=== PATIENT | female | born 1955 | race African-American/Black ===

== ENCOUNTER 2016-05-16 21:35 | Emergency (ER) | payer OTHER ==
[~2016-05-16] VITALS: Ht 157.5 cm; Wt 83.0 kg
[~2016-05-16 21:35] MED LIST: B12-1CHW CHEW; CARV3.125 PO; FLUT1SPR9 INH; HYDR-2768 PO; MEVA40TA6 PO; POTA595T2 PO; ST J81CH PO; SYMB80AE INH
[2016-05-16 21:37] VITALS: BP 182/81; PULSE 60; RESP 16; TEMP 97.8; O2SAT 99
[2016-05-16] MEDS ORDERED: ASPI81CH CHEW (23:20)
[2016-05-16] MEDS ORDERED: B12-1CHW CHEW (23:20)
[2016-05-16] MEDS ORDERED: CARV3.125 PO (23:20)
[2016-05-16] MEDS ORDERED: POTA595T (23:20)
[2016-05-16] MEDS ORDERED: HYDR25TA5 PO (23:20)
[2016-05-16] MEDS ORDERED: LOVA40TA PO (23:20)
[2016-05-16 23:50] VITALS: BP 148/85; PULSE 61; RESP 16; O2SAT 97
--- NOTE | 2016-05-17 01:03 | PD ---
HPI Chief Complaint: Numbness/Tingling Time Seen by Provider: 00:48 Travel History International Travel<30 days: No Contact w/Intl Traveler<30days: No Traveled to known affect area: No History of Present Illness HPI The patient is a 60-year-old female that complains of bilateral hands tingling and numbness, this has resolved. The patient does have a history of anxiety. She also has bilateral pinprick feeling and tingling in the bottom of her feet for 4 days. She was told she had borderline diabetes 6 months ago. She is followed by Dr. Wayne. The patient states her job is very stressful. PFSH Past Medical History Hx Anticoagulant Therapy: Yes (81 MG. ASA) Asthma: Yes Heart Rhythm Problems: No Cardiac Catheterization: No Cardiovascular Problems: Yes (HTN, CHOL) High Cholesterol: Yes Congestive Heart Failure: No Diabetes: No Diminished Hearing: No Heparin Induced Thrombocytopen: No Hypertension: Yes Implanted Vascular Access Dvce: No Psychiatric: No Respiratory: Yes (ASTHMA) Immunizations Current: Yes Myocardial Infarction: No Tetanus Vaccination: Unknown Influenza Vaccination: No Menopausal: Yes : 2 Para: 2 Tubal Ligation: Yes Past Surgical History Abdominal Surgery: Yes (cholecystectomy, tubal ligation) Cholecystectomy: Yes Coronary Artery Bypass Graft: No Other Surgery: Yes Family History Family Myocardial Infarction: No Social History Alcohol Use: Yes (OCCASIONAL) Tobacco Use: Yes (when drinks) Substance Use: No Allergies-Medications (Allergen,Severity, Reaction): Coded Allergies: Flexeril (Verified Allergy, Severe, 05/16/16) Soma (Verified Allergy, Severe, 05/16/16) Reported Meds & Prescriptions Reported Meds & Active Scripts Active Reported Potassium Gluconate 595 Mg Tab 2 DAILY [id number] (Methylcobalamin) 1 Mg Chew 1 Mg CHEW DAILY Lovastatin 40 Mg Tab 40 Mg PO DAILY Hydrochlorothiazide 25 Mg Tab 25 Mg PO DAILY Coreg (Carvedilol) 3.125 Mg Tab 3.125 Mg PO BID Aspirin 81 Mg Chew 81 Mg CHEW DAILY Review of Systems Except as stated in HPI: all other systems reviewed are Neg Physical Exam Narrative GENERAL: Well-nourished, well-developed patient who appears slightly anxious but in otherwise no apparent distress. Her vital signs show initially show blood pressure 182/81 but, after relaxing, her blood pressure is 148/85. The rest the vital signs are normal. SKIN: Warm and dry. HEAD: Normocephalic. EYES: No scleral icterus. No injection or drainage. NECK: Supple, trachea midline. No JVD or lymphadenopathy. CARDIOVASCULAR: Regular rate and rhythm without murmurs, gallops, or rubs. RESPIRATORY: Breath sounds equal bilaterally. No accessory muscle use. GASTROINTESTINAL: Abdomen soft, non-tender, nondistended. MUSCULOSKELETAL: No cyanosis, or edema. BACK: Nontender without obvious deformity. No CVA tenderness. NEUROLOGICAL: Awake and alert. Cranial nerves II through XII intact. Motor and sensory grossly within normal limits. Five out of 5 muscle strength in all muscle groups. Normal speech and gait. Data Data Last Documented VS Vital Signs Date Time Temp Pulse Resp B/P Pulse Ox O2 Delivery O2 Flow Rate FiO2 05/16/16 23:50 61 16 148/85 97 Room Air 05/16/16 21:37 97.8 Orders Blood Glucose (05/17/16 00:56) MDM Medical Decision Making Medical Screen Exam Complete: Yes Emergency Medical Condition: Yes Medical Record Reviewed: Yes Interpretation(s) The Accu-Chek is 93. Differential Diagnosis Anxiety/hyperventilation, diabetic neuropathy of feet, ischemic CVAhighly unlikely Narrative Course The patient's hand tingling which is bilateral appears to be anxiety/ hyperventilation. The patient's pinprick-type tingling and pain in the bottom of her feet may be from diabetic neuropathy. Her Accu-Chek is normal at this time. At this time she has no tingling in her hand and she feels calm. Diagnosis Primary Impression: Anxiety hyperventilation Additional Impression: Diabetic neuropathy Additional Instructions: Follow-up with your primary care physician next week. Try to exercise and find ways besides medications to help relieve the stress from work. Med/Other Pt SpecificInfo: No Change to Meds Disposition: 01 DISCHARGE HOME Condition: Stable Alonzo Urbina MD May 17, 2016 01:03
--- NOTE | 2016-05-18 11:07 | EKG ---
Date Performed: 05/16/2016 Time Performed: 23:26:02 PTAGE: 60 years EKG: SINUS BRADYCARDIA POSSIBLE LEFT ATRIAL ENLARGEMENT BORDERLINE ECG PREVIOUS TRACING : 04/19/2015 07.30 DOCTOR: Cynthia Ferris Interpretating Date/Time 05/18/2016 11:03:58
== END 2016-05-17 01:27 | disposition home or self-care (01) ==
LOC: NEPC 21:35
DX: R06.4 Hyperventilation (principal); F41.9 Anxiety disorder, unspecified; E11.40 Type 2 diabetes mellitus with diabetic neuropathy, unspecified; R94.31 Abnormal electrocardiogram [ECG] [EKG]; I10 Essential (primary) hypertension; Z72.0 Tobacco use; Z79.82 Long term (current) use of aspirin
CPT/HCPCS: 93005; 99283